=== PATIENT | female | born 1985 | race Caucasian/White ===

== ENCOUNTER 2016-05-28 19:26 | Outpatient (CLI) | payer OTHER ==
[2016-05-28 19:58] VITALS: BP 126/82
== END 2016-05-28 20:50 | disposition home or self-care (01) ==
LOC: TRG 19:26
PROVIDERS: ATTEND Specialist
DX: O62.0 Primary inadequate contractions (principal); O47.1 False labor at or after 37 completed weeks of gestation; Z3A.39 39 weeks gestation of pregnancy
CPT/HCPCS: 59025